=== PATIENT | female | born 1990 | race Caucasian/White ===

== ENCOUNTER 2018-01-12 12:10 | Emergency (ER) | payer SELFPAY ==
[~2018-01-12] VITALS: Ht 152.4 cm; Wt 54.5 kg
[2018-01-12 12:14] VITALS: BP 141/68; TEMP 98.3
[2018-01-12 13:45] LABS: COLLECTION METHOD CLEAN CATCH
[2018-01-12 14:06] LABS: MUCOUS Present /lpf; PH 5 (5-8); URINE APPEARANCE Hazy; URINE BACTERIA None Seen /hpf; URINE BILIRUBIN Negative (NEGATIVE); URINE BLOOD Negative (NEGATIVE); URINE COLOR Yellow; URINE GLUCOSE Negative (NEGATIVE); URINE KETONE Trace (NEGATIVE); URINE LEUKOCYTE ESTERASE 3+ (NEGATIVE); URINE NITRATE Negative (NEGATIVE); URINE PROTEIN(semi-quant) 1+ (NEGATIVE); URINE UROBILINOGEN >=4.0 mg/dL (NEGATIVE)
[2018-01-12] MEDS ORDERED: CEPHALEXIN500 M1 PO (14:41)
[2018-01-12 14:56] VITALS: PULSE 94
== END 2018-01-12 14:56 | disposition home or self-care (01) ==
LOC: COL.ER 12:10
PROVIDERS: Nurse Practitioner
DX: N39.0 Urinary tract infection, site not specified (principal); A59.9 Trichomoniasis, unspecified; F17.210 Nicotine dependence, cigarettes, uncomplicated; Z90.49 Acquired absence of other specified parts of digestive tract